=== PATIENT | female | born 1935 | race Caucasian/White ===

== ENCOUNTER 2018-05-18 11:09 | Emergency (ER) | payer MEDICARE ==
[~2018-05-18] VITALS: Ht 162.6 cm; Wt 58.6 kg
[~2018-05-18 11:09] MED LIST: ALBU8.5H8 INH; BETA45OI5 TP; CARV-50 PO; CLOB15CR4 TOP; CLOP75TA35 PO; DOCU-28 PO; DULO-31 PO; FLO110IN IH; GABA-532 PO; HYDR-3972 PO; ICOS1CAP PO; INSU100V12 SQ; LIDO700A5 TOP; METF500T PO; NITR0.4T51 SL; OMEP20CA10 PO; PRAV40TA3 PO; TRAZ-218 PO
--- NOTE | 2018-05-18 11:27 | NUR ---
NO POWER AT HOME. [facility]. ANXIETY AND VAGINAL ULCERS. HX CABG, PACEMAKER, COPD, DM, LICHEN SCLEROSIS. C/OM GENERALIZED PAIN.
--- NOTE | 2018-05-18 11:49 | NUR ---
BROUGHT IN BY EMS WITH COMPLAINTS OF GENERALIZED PAIN, ANXIETY, VAGINAL BURNING, AND BACK PAIN. PATIENT HAS HX LICHENS SCLEROSIS OF THE VAGINA AND HAS BEEN UNABLE TO TAKE HERE PRESCRIBED MEDICATION. NO POWER IN HER HOME SINCE YESTERDAY. ALERT AND TALKATIVE. SIG OTHER AT THE BEDSIDE.
[2018-05-18 12:35] VITALS: BP 166/90
[2018-05-18] MEDS ORDERED: PROCHC TOP (12:46)
[2018-05-18] MEDS ORDERED: LORazepam 1 MG tablet PO ONE (12:50)
[2018-05-18] MEDS ORDERED: LORazepam 0.5 MG tablet PO ONE (12:50)
== END 2018-05-18 13:06 | disposition home or self-care (01) ==
LOC: ER 11:09
DX: L90.0 Lichen sclerosus et atrophicus (principal); F41.9 Anxiety disorder, unspecified; I25.119 Atherosclerotic heart disease of native coronary artery with unspecified angina pectoris; E78.00 Pure hypercholesterolemia, unspecified; J44.9 Chronic obstructive pulmonary disease, unspecified; K21.9 Gastro-esophageal reflux disease without esophagitis; I25.2 Old myocardial infarction; E11.9 Type 2 diabetes mellitus without complications; F32.9 Major depressive disorder, single episode, unspecified; Z87.11 Personal history of peptic ulcer disease; Z90.49 Acquired absence of other specified parts of digestive tract; Z90.710 Acquired absence of both cervix and uterus; Z95.1 Presence of aortocoronary bypass graft; Z79.899 Other long term (current) drug therapy; Z79.4 Long term (current) use of insulin; Z79.84 Long term (current) use of oral hypoglycemic drugs
CPT/HCPCS: 99284

== ENCOUNTER 2019-03-08 14:42 | Emergency (ER) | payer MEDICARE ==
[~2019-03-08] VITALS: Ht 162.6 cm; Wt 54.5 kg
[~2019-03-08 14:42] MED LIST changes: -OMEP20CA10 PO; +OMEP20CA11 PO; +PROCHC TOP; -TRAZ-218 PO; +TRAZ-251 PO
[2019-03-08 15:08] VITALS: BP 107/56
== END 2019-03-08 15:58 | disposition home or self-care (01) ==
LOC: ER 14:43
DX: G89.28 Other chronic postprocedural pain (principal); M54.5 Low back pain; M25.511 Pain in right shoulder; I25.10 Atherosclerotic heart disease of native coronary artery without angina pectoris; E78.00 Pure hypercholesterolemia, unspecified; I25.2 Old myocardial infarction; J44.9 Chronic obstructive pulmonary disease, unspecified; K21.9 Gastro-esophageal reflux disease without esophagitis; F41.9 Anxiety disorder, unspecified; F32.9 Major depressive disorder, single episode, unspecified; Z90.49 Acquired absence of other specified parts of digestive tract; Z90.710 Acquired absence of both cervix and uterus; Z98.890 Other specified postprocedural states; Z95.1 Presence of aortocoronary bypass graft; Z79.4 Long term (current) use of insulin; Z79.84 Long term (current) use of oral hypoglycemic drugs; Z79.899 Other long term (current) drug therapy
CPT/HCPCS: 99281

== ENCOUNTER 2021-08-19 09:57 | Day surgery (SDC) | payer MEDICARE ==
[~2021-08-19] VITALS: Ht 162.6 cm; Wt 54.6 kg
[2021-08-19] VITALS (10 sets, daily range): BP systolic 113–217; BP diastolic 57–119
[~2021-08-19 09:57] MED LIST changes: +ALBU8.5H17 INH; -ALBU8.5H8 INH; +CLOP75TA34 PO; -CLOP75TA35 PO; -OMEP20CA11 PO; +OMEP20CA15 PO
[2021-08-19 11:01] LABS: BASOPHILS # (AUTO) 0.1 X10'3 (0-0.2); BASOPHILS % (AUTO) 0.9 % (0-1); EOSINOPHILS # (AUTO) 0.5 X10'3 (0-0.9); EOSINOPHILS % (AUTO) 5.9 % (0-6); HEMATOCRIT 36.9 % (35.0-45.0); HEMOGLOBIN 12.2 g/dl (12.0-16.0); LYMPHOCYTES # (AUTO) 1.5 X10'3 (1.1-4.8); LYMPHOCYTES % (AUTO) 17.8 % (21-51); MEAN CORPUSCULAR HGB CONC 33.1 g/dL (33.0-36.5); MEAN CORPUSCULAR VOLUME 96.5 FL (78-98); MEAN PLATELET VOLUME 9.3 FL (7.4-10.4); MONOCYTES # (AUTO) 0.4 X10'3 (0-0.9); MONOCYTES % (AUTO) 4.8 % (2-12); NEUTROPHILS # (AUTO) 6.1 X10'3 (1.8-7.7); NEUTROPHILS % (AUTO) 70.6 % (42-75); PLATELET COUNT 223 X10'3 (140-440); RED BLOOD COUNT 3.82 X10'6 (4.20-5.60); RED CELL DISTRIBUTION WIDTH 14.3 % (11.5-14.5); WHITE BLOOD COUNT 8.7 X10'3 (4.5-11.0)
[2021-08-19 11:12] LABS: ALBUMIN 3.1 G/DL (3.4-5.0); ANION GAP 6 (8-16); BLOOD UREA NITROGEN 10 MG/DL (7-18); BUN/CREATININE RATIO 13.3 (6.6-38.0); CALCIUM 8.7 MG/DL (8.5-10.1); CHLORIDE 104 MMOL/L (99-107); CREATININE 0.75 MG/DL (0.40-0.90); GLUCOSE 130 MG/DL (70-104); POTASSIUM 4.9 MMOL/L (3.5-5.1); SODIUM 141 MMOL/L (135-145); TOTAL CARBON DIOXIDE 31.2 MMOL/L (24-32); eGFR 73 ML/MIN
[2021-08-19 11:28] LABS: APTT 21 SECONDS (22-32)
[2021-08-19] MEDS ORDERED: MOME220A2 INH (12:17)
[2021-08-19] MEDS ORDERED: TRAZ-251 PO (12:17)
[2021-08-19] MEDS ORDERED: IPRA3AMP31 IH (12:17)
[2021-08-19] MEDS ORDERED: ESTR50GE TOP (12:17)
[2021-08-19] MEDS ORDERED: ISOS30TA84 PO (12:17)
[2021-08-19] MEDS ORDERED: ASPI-611 PO (12:17)
[2021-08-19] MEDS ORDERED: OXYGEN NASALCANN (12:17)
[2021-08-19] MEDS ORDERED: CHOL100046 PO (12:17)
[2021-08-19] MEDS ORDERED: ATOR20TA66 PO (12:17)
[2021-08-19] MEDS ORDERED: BETA15CR4 TOP (12:17)
[2021-08-19] MEDS ORDERED: EZET10TA6 PO (12:17)
[2021-08-19] MEDS ORDERED: TRIA15OI9 TOP (12:17)
[2021-08-19] MEDS ORDERED: LORA-512 PO (12:17)
[2021-08-19] MEDS ORDERED: PANT20TA18 PO (12:21)
[2021-08-19] MEDS ORDERED: ONDA8TAB13 PO (12:21)
[2021-08-19] MEDS ORDERED: HYDR-3972 PO (12:21)
[2021-08-19] MEDS ORDERED: ASCO-157 PO (12:21)
[2021-08-19] MEDS ORDERED: midazolam 1 mg/ML 2ml injection ONE (12:36)
[2021-08-19] MEDS ORDERED: fentaNYL/PF 50MCG/1 ML 2ML syringe ONE (12:36)
[2021-08-19] MEDS ORDERED: ceFAZolin 1000mg inj ONE (12:37)
[2021-08-19] MEDS ORDERED: LIDOcaine 1% W/epiNEPHrine 1:100,000 20ml vial ONE ×2 (12:37→13:40)
[2021-08-19] MEDS ORDERED: ceFAZolin 2gm in dextrose, iso 50 ML IV ONE (13:27)
[2021-08-19] MEDS ORDERED: vancomycin/NS 1 GM ADD-VANTAGE 250 ML X 1 DOSE IV ONE (15:05)
[2021-08-19] MEDS ORDERED: HYDROcodone/acetaminophen 10/325mg tab PO ONE (15:30)
[2021-08-20] MEDS ORDERED: ceFAZolin inj. 2,000 MG in dextrose 5%-water 100 ML IV ONE (05:30)
== END 2021-08-19 18:30 | disposition home or self-care (01) ==
LOC: SSTAY O 09:57
PROVIDERS: ATTEND Internal Medicine Cardiovascular Disease
DX: Z45.010 Encounter for checking and testing of cardiac pacemaker pulse generator [battery] (principal); I11.0 Hypertensive heart disease with heart failure; I50.9 Heart failure, unspecified; E11.9 Type 2 diabetes mellitus without complications; J44.9 Chronic obstructive pulmonary disease, unspecified; I25.10 Atherosclerotic heart disease of native coronary artery without angina pectoris; I25.2 Old myocardial infarction; E66.3 Overweight; Z68.21 Body mass index [BMI] 21.0-21.9, adult; F41.9 Anxiety disorder, unspecified; E11.40 Type 2 diabetes mellitus with diabetic neuropathy, unspecified; M19.90 Unspecified osteoarthritis, unspecified site; E78.49 Other hyperlipidemia; D64.9 Anemia, unspecified; Z95.1 Presence of aortocoronary bypass graft; Z79.01 Long term (current) use of anticoagulants; Z79.899 Other long term (current) drug therapy; Z79.84 Long term (current) use of oral hypoglycemic drugs; Z87.11 Personal history of peptic ulcer disease; Z87.891 Personal history of nicotine dependence; Z90.710 Acquired absence of both cervix and uterus; Z98.890 Other specified postprocedural states; Z88.8 Allergy status to other drugs, medicaments and biological substances
CPT/HCPCS: 33227; 36415; 80048; 82948; 85025; 85610; 85730; 93005; 99152; 99153; C1786; J0690; J2250; J3010; J3370; J3490; A4620; A6258; A6449; C1894

== ENCOUNTER 2021-11-30 15:33 | Emergency (ER) | payer MEDICARE ==
[~2021-11-30] VITALS: Ht 157.5 cm; Wt 52.0 kg
[~2021-11-30 15:33] MED LIST changes: +ASCO-157 PO; +ASPI-611 PO; +ATOR20TA66 PO; +BETA15CR4 TOP; -BETA45OI5 TP; +CHOL100046 PO; -CLOB15CR4 TOP; -DOCU-28 PO; +ESTR50GE TOP; +EZET10TA6 PO; -ICOS1CAP PO; -INSU100V12 SQ; +IPRA3AMP31 IH; +ISOS30TA84 PO; -LIDO700A5 TOP; +LORA-512 PO; +MOME220A2 INH; -OMEP20CA15 PO; +ONDA8TAB13 PO; +OXYGEN NASALCANN; +PANT20TA18 PO; -PROCHC TOP; +TRIA15OI9 TOP
[2021-11-30 15:42] VITALS: BP 112/48
[2021-11-30] MEDS ORDERED: HYDROcodone/acetaminophen 10/325mg tab PO ONE (19:20)
== END 2021-11-30 22:45 | disposition home or self-care (01) ==
LOC: ER 15:33
DX: M25.561 Pain in right knee (principal); E78.00 Pure hypercholesterolemia, unspecified; J44.9 Chronic obstructive pulmonary disease, unspecified; K21.9 Gastro-esophageal reflux disease without esophagitis; E11.9 Type 2 diabetes mellitus without complications; Z88.5 Allergy status to narcotic agent; Z88.8 Allergy status to other drugs, medicaments and biological substances; Z98.890 Other specified postprocedural states; Z90.710 Acquired absence of both cervix and uterus
CPT/HCPCS: 73564; 73700; 99284

== ENCOUNTER 2022-10-31 03:06 | Emergency (ER) | payer MEDICARE ==
[~2022-10-31] VITALS: Ht 162.6 cm; Wt 50.5 kg
[~2022-10-31 03:06] MED LIST changes: -MOME220A2 INH; +MOME220A6 INH
[2022-10-31 03:15] VITALS: BP 216/82; PULSE 85; RESP 18; TEMP 98.4; O2SAT 99
--- NOTE | 2022-10-31 03:27 | NUR ---
DR DE LA PAZ NOTIFIED OF HIGH BP. PT STATES TAKES BP MEDICATION TID AND DID NOT MISS LASTNIGHTS DOSE.
== END 2022-10-31 07:04 | disposition left against medical advice (07) ==
LOC: ER 03:07
DX: R42 Dizziness and giddiness (principal); Z53.21 Procedure and treatment not carried out due to patient leaving prior to being seen by health care provider
CPT/HCPCS: 99281